=== PATIENT | male | born 1965 | race Caucasian/White ===

== ENCOUNTER 2024-06-04 12:07 | Day surgery (SDC) | payer OTHER ==
[~2024-06-04] VITALS: Ht 193 cm; Wt 107.0 kg
[~2024-06-04 12:07] MED LIST: MIDAZOLAM INJ 2MG/2ML VIAL As Ordered ONE; PHENYLEPHRINE 10% OPHTH SOL 5ML OD PRN; fentaNYL 100 MCG/2 ML INJECTION As Ordered ONE
[2024-06-04] MEDS: OFLOXACIN 0.3 % (OCUFLOX) OPTH SOL 5ML OD ONE (12:43)
[2024-06-04] MEDS: TROPICAMIDE 1% OPHTH SOLN 15ML OD SCH (12:51)
[2024-06-04] MEDS: PHENYLEPHRINE 2.5% OPHTH SOL 2ML OD SCH (12:51)
[2024-06-04] MEDS: LIDOCAINE 3.5 % 1ML OPHTH TOPICAL GEL OU ONE (12:51)
[2024-06-04] MEDS: ATROPINE SULFATE 1% OPHTH SOLN 2ML BTL OD SCH (12:51)
[2024-06-04] MEDS: BSS IRRIG/VANCO(10MG)/TOBRA(5MG)/EPINEPH(1:1000-0.5CC)500ML BAG-ORONLY As Ordered ONE (13:22)
[2024-06-04] MEDS: DUOVISC (0.50ML VISCOAT/0.85ML PROVISC) OPHTH KIT As Ordered ONE (13:22)
[2024-06-04] MEDS: LIDOCAINE 1% SDV 5ML VIAL As Ordered ONE (13:22)
[2024-06-04] MEDS: CEFUROXIME 1MG/0.1ML INTRACAMERAL INJ As Ordered ONE (13:31)
[2024-06-04 13:35] VITALS: BP 122/69; TEMP 98; O2SAT 96
== END 2024-06-04 14:23 | disposition home or self-care (01) ==
LOC: M SDC 12:07
PROVIDERS: ATTEND Ophthalmology
DX: H25.11 Age-related nuclear cataract, right eye (principal); I48.91 Unspecified atrial fibrillation; R21 Rash and other nonspecific skin eruption; F41.9 Anxiety disorder, unspecified; F32.A Depression, unspecified; F17.218 Nicotine dependence, cigarettes, with other nicotine-induced disorders; F12.10 Cannabis abuse, uncomplicated
CPT/HCPCS: 66984; J0697; J2250; J3010; V2632

== ENCOUNTER 2024-07-02 10:20 | Day surgery (SDC) | payer OTHER ==
[~2024-07-02] VITALS: Ht 193 cm; Wt 106.7 kg
[~2024-07-02 10:20] MED LIST changes: -PHENYLEPHRINE 10% OPHTH SOL 5ML OD PRN; +PHENYLEPHRINE 10% OPHTH SOL 5ML OS PRN
[2024-07-02] MEDS: PHENYLEPHRINE 2.5% OPHTH SOL 2ML OS SCH (11:04)
[2024-07-02] MEDS: OFLOXACIN 0.3 % (OCUFLOX) OPTH SOL 5ML OS ONE (11:04)
[2024-07-02] MEDS: LIDOCAINE 3.5 % 1ML OPHTH TOPICAL GEL OU ONE (11:04)
[2024-07-02] MEDS: TROPICAMIDE 1% OPHTH SOLN 15ML OS SCH (11:04)
[2024-07-02] MEDS: ATROPINE SULFATE 1% OPHTH SOLN 2ML BTL OS SCH (11:04)
[2024-07-02] MEDS: LIDOCAINE 1% SDV 5ML VIAL As Ordered ONE (11:45)
[2024-07-02] MEDS: CEFUROXIME 1MG/0.1ML INTRACAMERAL INJ As Ordered ONE (11:46)
[2024-07-02] MEDS: BSS IRRIG/VANCO(10MG)/TOBRA(5MG)/EPINEPH(1:1000-0.5CC)500ML BAG-ORONLY As Ordered ONE (11:46)
[2024-07-02 12:10] VITALS: BP 130/86; TEMP 97.3; O2SAT 97
[2024-07-02] MEDS: DUOVISC (0.50ML VISCOAT/0.85ML PROVISC) OPHTH KIT As Ordered ONE (14:14)
== END 2024-07-02 12:30 | disposition home or self-care (01) ==
LOC: M SDC 10:20
PROVIDERS: ATTEND Ophthalmology
DX: H25.12 Age-related nuclear cataract, left eye (principal); H27.02 Aphakia, left eye; I48.91 Unspecified atrial fibrillation; F41.9 Anxiety disorder, unspecified; F32.A Depression, unspecified; F17.218 Nicotine dependence, cigarettes, with other nicotine-induced disorders; F12.10 Cannabis abuse, uncomplicated
CPT/HCPCS: 66850; J0697; J2250; J3010

== ENCOUNTER → 2024-08-27 | Outpatient (CLI) | payer OTHER ==
[~2024-08-27] MED LIST changes: +ISOVUE-370 76% 100ML VIAL ONE; -MIDAZOLAM INJ 2MG/2ML VIAL As Ordered ONE; -PHENYLEPHRINE 10% OPHTH SOL 5ML OS PRN; -fentaNYL 100 MCG/2 ML INJECTION As Ordered ONE
== END ==
LOC: M PLAIMG 08:43
PROVIDERS: ATTEND Nurse Practitioner Family
DX: R10.9 Unspecified abdominal pain (principal); K40.21 Bilateral inguinal hernia, without obstruction or gangrene, recurrent; K57.30 Diverticulosis of large intestine without perforation or abscess without bleeding
CPT/HCPCS: 74177; Q9967

== ENCOUNTER 2024-10-23 08:52 | Day surgery (SDC) | payer OTHER ==
[~2024-10-23] VITALS: Ht 195.6 cm; Wt 111.5 kg
[2024-10-23] MEDS ORDERED: NS (Normal Saline) 0.9% 1,000 ML IV SCH ×2 (09:40→12:45)
[2024-10-23] MEDS ORDERED: fentaNYL 250 MCG/5 ML INJECTION As Ordered ONE (10:17)
[2024-10-23] MEDS ORDERED: propofoL 200 MG/20 ML VIAL As Ordered ONE (10:18)
[2024-10-23] MEDS ORDERED: ROCURONIUM BROMIDE 50MG/5ML VIAL As Ordered ONE (10:18)
[2024-10-23] MEDS ORDERED: LIDOCAINE 2% 100MG/5ML SDV (FOR ANES.) As Ordered ONE (10:18)
[2024-10-23] MEDS ORDERED: MIDAZOLAM INJ 2MG/2ML VIAL As Ordered ONE (10:18)
[2024-10-23] MEDS ORDERED: ACETAMINOPHEN 1000MG/100ML IV BAG As Ordered ONE (10:19)
[2024-10-23] MEDS ORDERED: ONDANSETRON 4MG 2ML VIAL As Ordered ONE (10:19)
[2024-10-23] MEDS ORDERED: KETOROLAC 60MG 2ML VIAL As Ordered ONE (10:19)
[2024-10-23] MEDS: ceFAZolin SOD 2 GM in IV 1 EA IV ONE (11:30)
[2024-10-23] MEDS ORDERED: LABETALOL 100MG/20ML VIAL As Ordered ONE (11:55)
[2024-10-23] MEDS ORDERED: SUGAMMADEX SODIUM 500 MG/5 ML VIAL (BRIDION) As Ordered ONE (11:56)
[2024-10-23] MEDS ORDERED: fentaNYL 100 MCG/2 ML INJECTION IV PRN (12:45)
[2024-10-23] MEDS ORDERED: HYDROMORPHONE HCL 0.5 MG/ 0.5 ML SYRINGE IV PRN (12:45)
[2024-10-23] MEDS ORDERED: ONDANSETRON 4MG 2ML VIAL IV PRN (12:45)
[2024-10-23] MEDS ORDERED: oxyCODONE 5MG TAB PO PRN (12:45)
[2024-10-23 14:00] VITALS: BP 125/85; TEMP 97.6; O2SAT 97
== END 2024-10-23 14:30 | disposition home or self-care (01) ==
LOC: M SDC 08:52
PROVIDERS: ATTEND Surgery
DX: K40.21 Bilateral inguinal hernia, without obstruction or gangrene, recurrent (principal); F17.210 Nicotine dependence, cigarettes, uncomplicated; I48.91 Unspecified atrial fibrillation; K21.9 Gastro-esophageal reflux disease without esophagitis; F12.10 Cannabis abuse, uncomplicated
CPT/HCPCS: 49650; C1781; J0131; J0665; J0690; J1100; J1885; J1920; J2250; J2405; J3010; S2900

== ENCOUNTER → 2024-11-26 | Outpatient (CLI) | payer OTHER | LOC: M RAD 09:04 | PROVIDERS: ATTEND Internal Medicine | DX: F17.210 Nicotine dependence, cigarettes, uncomplicated (principal) ==

== ENCOUNTER 2024-12-30 13:04 | Emergency (ER) | payer OTHER ==
[~2024-12-30] VITALS: Ht 190.5 cm; Wt 114.4 kg
[2024-12-30 13:10] VITALS: TEMP 97.9
[2024-12-30 13:36] LABS: BASO # 0.1 10^3/uL (0.0-0.2); BASO % 0.4 % (0.0-1.0); EOS # 0.2 10^3/uL (0.0-0.5); EOS % 1.1 % (0.0-3.0); HEMATOCRIT 47.9 % (42.0-52.0); HEMOGLOBIN 16.1 g/dl (13.5-17.5); LYMPH # 1.4 10^3/uL (1.5-5.0); LYMPH % 8.6 % (24.0-44.0); MEAN CORPUSCULAR HEMOGLOBIN 28.6 pg (27.0-33.0); MEAN CORPUSCULAR HGB CONC 33.6 g/dl (32.0-36.5); MEAN CORPUSCULAR VOLUME 85.1 fl (80.0-96.0); MONO # 0.7 10^3/uL (0.0-0.8); MONO % 4.1 % (2.0-8.0); NEUTROPHILS # 13.4 10^3/uL (1.5-8.5); NEUTROPHILS % 85.1 % (36.0-66.0); PLATELET COUNT, AUTOMATED 209 10^3/uL (150-450); RED BLOOD COUNT 5.63 10^6/uL (4.30-6.10); WHITE BLOOD COUNT 15.7 10^3/uL (4.0-10.0)
[2024-12-30] MEDS: ASPIRIN 81MG CHEW TABLET PO ONE (13:52)
[2024-12-30 14:00] LABS: LIPASE 20 U/L (12-53)
[2024-12-30 14:02] LABS: ALBUMIN 4.1 G/DL (3.2-5.2); ALKALINE PHOSPHATASE 78 U/L (40-129); ALT/SGPT 14 U/L (7.0-40); AST/SGOT 15 U/L (<34); BILIRUBIN,DIRECT 0.2 MG/DL (<0.4); BILIRUBIN,TOTAL 0.5 MG/DL (0.3-1.2); BLOOD UREA NITROGEN 11 MG/DL (9-23); CALCIUM LEVEL 8.6 MG/DL (8.5-10.1); CARBON DIOXIDE LEVEL 26 MMOL/L (20-31); CHLORIDE LEVEL 105 MMOL/L (98-107); CK-MB VALUE MASS < 1.0 NG/ML (<3.6); CPK CREATINE PHOSPHOKINASE 78 U/L (46-171); CREATININE FOR GFR 0.94 MG/DL (0.70-1.30); GLOMERULAR FILTRATION RATE > 90.0 (>56); GLUCOSE, FASTING 99 MG/DL (60-100); MB/CK RELATIVE INDEX 1.28 (< OR =4); POTASSIUM SERUM 4.2 MMOL/L (3.5-5.1); SODIUM LEVEL 139 MMOL/L (136-145); TOTAL PROTEIN 6.7 G/DL (5.7-8.2)
[2024-12-30] MEDS ORDERED: ISOVUE-370 76% 100ML VIAL As Ordered ONE (14:16)
[2024-12-30 14:45] VITALS: BP 125/72
[2024-12-30 15:04] VITALS: O2SAT 81
[2024-12-30 15:05] LABS: CK-MB VALUE MASS < 1.0 NG/ML (<3.6); CPK CREATINE PHOSPHOKINASE 75 U/L (46-171); MB/CK RELATIVE INDEX 1.33 (< OR =4)
== END 2024-12-30 15:20 | disposition left against medical advice (07) ==
LOC: EDBD 13:04 → M ED 13:04
DX: R07.9 Chest pain, unspecified (principal); Z53.9 Procedure and treatment not carried out, unspecified reason; I48.91 Unspecified atrial fibrillation; F17.200 Nicotine dependence, unspecified, uncomplicated; F12.10 Cannabis abuse, uncomplicated
CPT/HCPCS: 71045; 71275; 80048; 80076; 82550; 82553; 83690; 84484; 85025; 93005; 93041; 94760; 99285; Q9967